=== PATIENT | female | born 1940 | race Caucasian/White ===

== ENCOUNTER 2017-05-04 17:33 | Emergency (ER) | payer MEDICARE, BC ==
[2017-05-04] MEDS ORDERED: ACETAMINOPHEN 325 MG TAB PO ONE (17:57)
--- NOTE | 2017-05-04 18:05 | Emergency Department Record ---
History of Present Illness - General Chief complaint: Head Injury Stated complaint: FALL INJURY/HEAD Time Seen by Provider: 05/04/17 17:51 Source: Patient Mode of Arrival: Ambulatory Limitations: No limitations Travel/Exposure to [facility] Within 21 Days of Symptoms: No - History of Present Illness Initial comments: The patient is here due to a fall 30 minutes ago and injuring her head and L arm. She tripped at the gas station and fell hitting the area above her L eye on an object. There was no LOC and since she denies any visual changes, nausea, vomiting, CALDWELL, or any neck pain. She is having L elbow and wrist pain and is ambulating normally. The patient does take Plavix for a cardiac condition. MD Complaint: Head injury Onset/Timin -: Minutes(s) Mechanism of Injury: Mechanical fall Location: Face Loss of Consciousness: No Previous Trauma to this Area: No Place: Other Radiation: None Severity scale (1-10): 7 - Related Data Home Medications Medication Instructions Recorded Confirmed Last Taken Clopidogrel Bisulfate [Plavix] 75 mg PO DAILY 05/04/17 05/04/17 Unknown Isosorbide Mononitrate [Imdur] 20 mg PO DAILY 05/04/17 05/04/17 Unknown Previous Rx's Medication Instructions Recorded Hydrocodone/Acetaminophen [[place] 1 each PO QID #20 tablet 05/04/17 5-325 Tablet] Allergies/Adverse reactions: Allergies Allergy/AdvReac Type Severity Reaction Status Date / Time codeine Allergy Mild RASH Verified 05/04/17 17:50 Travel Screening - Travel/Exposure Within Last 30 Days Have you traveled within the last 30 days?: No - Travel/Exposure Within Last Year Have you traveled outside the [place] in the last year?: No Review of Systems Constitutional: Denies: Chills, Fever Eyes: Denies: Eye discharge ENT: Denies: Congestion Respiratory: Denies: Cough, Dyspnea Past Medical History - SOCIAL HISTORY Smoking Status: Former smoker Alcohol Use: Occasional Drug Use: None - RESPIRATORY Hx Respiratory Disorders: No - CARDIOVASCULAR Hx Abnormal EKG: Yes Hx Heart Attack: Yes Hx Hypertension: Yes - NEURO Hx Neuro Disorders: Yes Hx Headaches: Yes - GI Hx GI Disorders: Yes Hx Reflux: Yes - Hx Genitourinary Disorders: No - ENDOCRINE Hx Diabetes: No Hx Thyroid Disease: Yes - MUSCULOSKELETAL Hx Arthritis: Yes - PSYCH Hx Anxiety: Yes - HEMATOLOGY/ONCOLOGY Hx Hematology/Oncology Disorders: No Family Medical History Any Significant Family History?: No Physical Exam - General General Appearance: Alert, Oriented x3, Cooperative, No acute distress - Head Head exam: Normocephalic. negative: Atraumatic, Normal inspection Head exam detail: Contusion (There is a contusion above the L eyebrow with mild tenderness.), Hematoma. negative: Holt's sign Image of Face/Head: 1 - Area of hematoma. - Eye Eye exam: Normal appearance, PERRL, EOMI - ENT ENT exam: TM's normal bilaterally Throat exam: Normal inspection. negative: Tonsillar erythema, Tonsillar exudate - Neck Neck exam: Normal inspection, Full ROM. negative: Lymphadenopathy, Meningismus , Tenderness - Respiratory Respiratory exam: Normal lung sounds bilaterally. negative: Respiratory distress - Cardiovascular Cardiovascular Exam: Regular rate, Normal rhythm, Normal heart sounds - Extremities Extremities exam: Normal inspection, Full ROM, Normal capillary refill, Tenderness (There is diffuse L elbow and dorsal L wrist tenderness.) Image of Full Body: 1 - Area of pain and tenderness. - Back Back exam: Reports: Normal inspection, Full ROM. Denies: Muscle spasm, Rash noted, Tenderness - Neurological Neurological exam: Alert, Normal gait, Oriented X3. negative: Abnormal gait, Altered, Motor sensory deficit - Skin Skin exam: negative: Rash Course Vital Signs 05/04/17 17:41 Temperature 97.8 F Pulse Rate 79 Respiratory 16 Rate Blood Pressure 174/78 Pulse Ox 96 - Reevaluation(s) Reevaluation #1: The patient is doing very well at this time. She denies any worsening CALDWELL but does have L elbow pain. I did discuss the xrays with her and that it appears she has an L elbow radial neck fx. We will refer the patient to Dr. Blair for further eval. 05/04/17 18:51 05/04/17 19:12 Medical Decision Making - Data Complexity MDM Data: X-Ray Ordered and/or Reviewed - Radiology Data Radiology results: Report reviewed (Head CT: Neg L Wrist: Neg L Elbow: No obvious fx but fluid in joint.) Disposition Disposition: Discharge Clinical Impression: Head injury Qualifiers: Encounter type: initial encounter Qualified Code(s): S09.90XA - Unspecified injury of head, initial encounter Elbow fracture, left Qualifiers: Encounter type: initial encounter Fracture type: closed Qualified Code(s): S42.402A - Unspecified fracture of lower end of left humerus, initial encounter for closed fracture Disposition: Home, Self-Care Condition: (2) Stable Instructions: Elbow Fracture (ED), Head Injury (ED) Additional Instructions: Please use ice tonight and take the [place] if needed. Please do not take your Plavix for 3 days. Follow up with Dr. Blair tomorrow or next week either in the office or the Specialty clinic. Return to the ER for any worsening headache, nausea, vomiting, balance issues or visual changes. Prescriptions: Hydrocodone/Acetaminophen [[place] 5-325 Tablet] 1 each PO QID #20 tablet Referrals: [facility] Specialty Clinics [Provider Group] SHAI BLAIR [DOCTOR OF OSTEOPATH] - Forms: Patient Portal Access Time of Disposition: 19:15 Quality - Quality Measures Quality Measures: N/A - Blood Pressure Screening View Details: Yes Does Patient Have Any of the Following: Active Dx of HTN Blood Pressure Classification: Hypertensive Reading Systolic Measurement: 174 Diastolic Measurement: 78 Screening for High Blood Pressure: Patient Exclusion, Hx of HTN [G9744]
[2017-05-04] MEDS ORDERED: Diph,Pert(Acell),Tet Vac 0.5 ML SYR IM ONE (18:07)
[2017-05-04] MEDS ORDERED: HYDROCODONE/APAP 5/325MG TABLET PO ONE (18:53)
--- NOTE | 2017-05-06 18:40 | CT SCAN REPORT ---
EXAM: CT SCAN HEAD WO CONTRAST HISTORY: FALL. TECHNIQUE: CT brain without contrast. COMPARISON: None. FINDINGS: The globes are intact. Mucosal thickening of the maxillary sinuses. No displaced or depressed skull fracture. There is a left frontal scalp hematoma. Negative for acute intracranial hemorrhage. CT limited for evaluation of acute infarct. No CT evidence for large or territorial acute infarct. Diffuse atrophy with small vessel ischemic change. No mass or midline shift. IMPRESSION: 1. ATROPHY. SMALL VESSEL ISCHEMIC CHANGE. 2. LEFT FRONTAL SCALP HEMATOMA. [facility] [id number] [facility]
--- NOTE | 2017-05-06 18:44 | RADIOLOGY REPORT ---
EXAM: ELBOW, LEFT 3 VIEWS HISTORY: FALL. TECHNIQUE: Three views of the left elbow. COMPARISON: Prior left elbow from 09/30/12. ENCOUNTER: Initial. FINDINGS: There is abnormal elevation of the anterior fat pad on the lateral view with a visible posterior fat pad consistent with hemarthrosis. There is a subtle area of cortical irregularity, which may represent nondisplaced fracture involving the radial neck. No other evidence for acute fracture or dislocation. IMPRESSION: ABNORMAL FAT PADS CONSISTENT WITH HEMARTHROSIS. PROBABLE SUBTLE NONDISPLACED RADIAL NECK FRACTURE. [facility]: [id number] [facility]
--- NOTE | 2017-05-06 18:47 | RADIOLOGY REPORT ---
EXAM: WRIST, LEFT 3 VIEWS HISTORY: FALL. TECHNIQUE: Four views of the left wrist. COMPARISON: Prior left wrist from 09/30/12. ENCOUNTER: Initial. FINDINGS: Osteopenia. Vascular calcifications. Mild degenerative changes of the hand and wrist. Dorsal soft tissue swelling, however, no radiographic evidence for an acute fracture or dislocation. IMPRESSION: NO ACUTE OSSEOUS ABNORMALITY. SOFT TISSUE SWELLING. OSTEOPENIA. DEGENERATIVE CHANGE. JOB NUMBER: [id number] [facility]
== END 2017-05-04 19:28 | disposition home or self-care (01) ==
LOC: ER 17:33
DX: S52.132A Displaced fracture of neck of left radius, initial encounter for closed fracture (principal); S00.83XA Contusion of other part of head, initial encounter; M25.532 Pain in left wrist; R51 Headache; I10 Essential (primary) hypertension; I25.2 Old myocardial infarction; Z87.891 Personal history of nicotine dependence; W01.198A Fall on same level from slipping, tripping and stumbling with subsequent striking against other object, initial encounter; Y92.524 Gas station as the place of occurrence of the external cause
CPT/HCPCS: 70450; 90715; 96372; 99283; 99284

== ENCOUNTER 2017-05-06 08:56 | Emergency (ER) | payer MEDICARE, BC ==
--- NOTE | 2017-05-06 09:13 | Emergency Department Record ---
History of Present Illness - General Chief complaint: Extremity Problem Stated complaint: LT HAND INJURY (WAS HERE MONDAY) Time Seen by Provider: 05/06/17 08:59 Source: Patient Mode of Arrival: Ambulatory Limitations: No limitations - History of Present Illness Initial comments: The patient is here due to L hand and R knee pain after falling 2 days ago. She was seen in the ER and diagnosed with a subtle L radial neck elbow fx and did have a splint placed. Since the L hand has swollen up. She denies any new symptoms other than the R knee pain. Her CALDWELL is improving and she has had no nausea or vomiting. MD Complaint: Extremity pain Onset/Timin -: Days(s) - Related Data Previous Rx's Medication Instructions Recorded Hydrocodone/Acetaminophen [[place] 1 each PO QID #20 tablet 05/04/17 5-325 Tablet] Allergies Allergy/AdvReac Type Severity Reaction Status Date / Time codeine Allergy Mild RASH Verified 05/06/17 09:00 Review of Systems Constitutional: Denies: Chills, Fever Past Medical History - SOCIAL HISTORY Smoking Status: Former smoker Drug Use: None - RESPIRATORY Hx Respiratory Disorders: No - CARDIOVASCULAR Hx Abnormal EKG: Yes Hx Heart Attack: Yes Hx Hypertension: Yes - NEURO Hx Neuro Disorders: Yes Hx Headaches: Yes - GI Hx GI Disorders: Yes Hx Reflux: Yes - Hx Genitourinary Disorders: No - ENDOCRINE Hx Diabetes: No Hx Thyroid Disease: Yes - MUSCULOSKELETAL Hx Arthritis: Yes - PSYCH Hx Anxiety: Yes - HEMATOLOGY/ONCOLOGY Hx Hematology/Oncology Disorders: No Physical Exam - General General Appearance: Alert, Oriented x3, Cooperative, No acute distress - Head Head exam: Normocephalic. negative: Atraumatic Head exam detail: Contusion (L periorbital area.) - Eye Eye exam: PERRL, EOMI, Periorbital swelling (and bruising.). negative: Normal appearance - Neck Neck exam: Normal inspection, Full ROM. negative: Tenderness - Respiratory Respiratory exam: Normal lung sounds bilaterally. negative: Respiratory distress - Cardiovascular Cardiovascular Exam: Regular rate, Normal rhythm, Normal heart sounds - Extremities Extremities exam: Full ROM, Joint swelling (Mild to R knee.), Normal capillary refill, Tenderness (There is mild anterior R knee tenderness with a small effusion. The patient does have normal ROM of the knee. There is no ligamentous laxity.). negative: Normal inspection (The L hand is mildly swollen and tender. The R knee is very mildly tender with normal ROM.) - Neurological Neurological exam: Alert, Normal gait, Oriented X3. negative: Abnormal gait, Motor sensory deficit Course - Reevaluation(s) Reevaluation #1: I did explain to the patient that the L hand swelling is most likely due to the placement of the L elbow splint. We will xray the hand and knee and replace the splint. 05/06/17 09:12 Reevaluation #2: The patient is doing well at this time. I did discuss the xray results and the need for icing and elevating the affected extremities and to keep the appointment with Dr. Blair for Monday. I also did discuss the elbow with Dr. Blair and he does NOT want the patient in a splint. 05/06/17 09:52 Medical Decision Making - Data Complexity MDM Data: X-Ray Ordered and/or Reviewed - Radiology Data Radiology results: Report reviewed (L Hand: Neg for fx. R Knee: No acute fx but loose bodies in the joint.) Disposition Disposition: Discharge Clinical Impression: Elbow fracture, left Qualifiers: Encounter type: subsequent encounter Fracture type: closed Fracture healing: with routine healing Qualified Code(s): S42.402D - Unspecified fracture of lower end of left humerus, subsequent encounter for fracture with routine healing Disposition: Home, Self-Care Condition: (2) Stable Instructions: Knee Sprain (ED), Elbow Fracture (ED) Additional Instructions: Please ice and elevate the affected extremities and use your home pain medicines. Please see Dr. Blair on Monday in 2 days as planned. Forms: Patient Portal Access Time of Disposition: 09:55 Quality - Quality Measures Quality Measures: N/A - Blood Pressure Screening View Details: Yes Does Patient Have Any of the Following: Active Dx of HTN Blood Pressure Classification: Hypertensive Reading Systolic Measurement: 143 Diastolic Measurement: 65 Screening for High Blood Pressure: Patient Exclusion, Hx of HTN [G9744]
--- NOTE | 2017-05-07 12:07 | RADIOLOGY REPORT ---
EXAM: HAND, LEFT 3 VIEWS HISTORY: FALL. TECHNIQUE: Three views of the left hand. COMPARISON: Left wrist from 05/04/17. ENCOUNTER: Initial. FINDINGS: Osteopenia. Negative for acute fracture or dislocation. However, there is significant dorsal soft tissue swelling. Mild degenerative changes throughout the hand and wrist. IMPRESSION: OSTEOPENIA WITH DEGENERATIVE CHANGE. DORSAL SOFT TISSUE SWELLING. JOB NUMBER: [id number] [facility]
--- NOTE | 2017-05-07 12:09 | RADIOLOGY REPORT ---
EXAM: KNEE, RIGHT 3 VIEWS HISTORY: FALL. TECHNIQUE: Three views of the right knee. COMPARISON: None. ENCOUNTER: Initial. FINDINGS: Osteopenia. Negative for acute fracture or dislocation. Suspected small loose bodies in both the medial and lateral compartments of the knee with moderate tricompartmental degenerative change. Vascular calcifications are also noted. IMPRESSION: OSTEOPENIA WITH DEGENERATIVE CHANGES AND SUSPECTED LOOSE BODIES. JOB NUMBER: [id number] [facility]
== END 2017-05-06 10:10 | disposition home or self-care (01) ==
LOC: ER 08:56
DX: S52.132A Displaced fracture of neck of left radius, initial encounter for closed fracture (principal); M25.562 Pain in left knee; M79.642 Pain in left hand; I10 Essential (primary) hypertension; I25.2 Old myocardial infarction; W19.XXXA Unspecified fall, initial encounter; Z87.891 Personal history of nicotine dependence
CPT/HCPCS: 99283; 99284

== ENCOUNTER 2017-06-26 09:05 | Day surgery (SDC) | payer MEDICARE, BC ==
[2017-06-26] MEDS ORDERED: PROPOFOL 10 MG/ML VIAL IV ONE (09:06)
[2017-06-26] MEDS ORDERED: LIDOCAINE 2% MDV (20MG/ML) 20ML VIAL IV ONE (09:06)
--- NOTE | 2017-06-27 13:50 | Operative Note ---
DATE OF SURGERY: 06/26/2017 OPERATION: COLONOSCOPY to the cecum. INDICATION: History of adenomatous polyps in the past. Her last examination was 5 years ago and was free from any polyps. PROCEDURE: Following informed consent from this alert individual including a discussion of the risks and benefits of the procedure and an opportunity for the patient to ask questions, the patient was in the left lateral decubitus position. A digital rectal examination was performed. No abnormalities were noted. Following this, the Olympus [id number] video colonoscope was inserted into the rectum without resistance. The rectal mucosa had a normal appearance with normal folds and distensibility. The colonoscope was advanced up through the colon to the level of the cecum without much difficulty. Throughout the bowel the mucosa appeared normal, the folds were normal, and the bowel was fairly well distensible. The cecum was defined by noting the appendiceal orifice and ileocecal valve. From the base of the cecum, the colonoscope was then withdrawn back through the bowel, reexamining the mucosa upon withdrawal. Again the right colon, transverse colon were endoscopically normal. Descending colon and sigmoid colon likewise were free from changes. Retroflexion was accomplished in the cecum and failed to demonstrate changes. The colon preparation was good. The colonoscope was then further withdrawn. Retroflexion in the rectum revealed small internal hemorrhoids. The endoscope was straightened and removed. The patient tolerated the procedure well and was returned to the recovery area in stable condition. IMPRESSION: Unremarkable colonoscopy to the cecum with the exception of small hemorrhoids internally. RECOMMENDATIONS: The patient was advised to have surveillance colonoscopy in 5 years' time for history of adenomatous polyps. She will otherwise follow up with Jaymie Ortega MD. As always, thank you for allowing me to participate in the care of your patient. CC: MD TOD Mar
--- NOTE | 2017-06-27 13:50 | Operative Note ---
DATE OF SURGERY: 06/26/2017 OPERATION: ESOPHAGOGASTRODUODENOSCOPY. 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 She returns at this time for a recheck. Unfortunately, she did not stop her Plavix prior to this examination and this was discussed with her before proceeding. ANESTHESIA: Intravenous sedation was administered by the department of anesthesiology and included Diprivan titrated to effect. PROCEDURE: Following informed consent from this alert individual, including a discussion of the risks and benefits of the procedure and an opportunity for the patient to ask questions, the patient was in the left lateral decubitus position. The Olympus [id number] video endoscope was inserted into the esophagus without resistance. The proximal esophagus had a normal appearance with normal folds and distensibility. The mid esophagus likewise was free from changes. The distal esophageal segment demonstrated superficial ulceration noted with some erythema and edema at the GE junction. As mentioned, since the patient was on Plavix, biopsies were not obtained. The stomach was entered. There was diffuse gastritis in the proximal stomach noted without ulcerations or erosions seen. The antrum likewise was endoscopically inflamed with mild linear streak erythema noted extending from the pylorus. The pylorus itself was symmetrical and patent. The duodenal bulb, sweep, and descending duodenum were examined in a serial fashion and found to be normal. The endoscope was then withdrawn back into the body of the stomach. Retroflexion accomplished following air insufflation failed to demonstrate any additional changes. Again, gastritis was noted. The endoscope was then withdrawn back to the esophagus and removed from the patient. The patient tolerated the procedure well and was returned to the recovery area in stable condition. IMPRESSION: 1. Superficial ulcerative distal esophagitis. 2. Gastritis as noted above. RECOMMENDATION: I will discuss treatment with the patient prior to her discharge today and will most likely recheck endoscopy in 2-3 months while patient is off Plavix so that surveillance biopsies can be obtained for a history of [place]'s and intestinal metaplasia noted in the stomach as well and to assess healing. As always, thank you for allowing me to participate in the care of your patient. CC: MD TOD Mar
== END 2017-06-26 12:35 | disposition home or self-care (01) ==
LOC: HOP 09:05
PROVIDERS: ATTEND Internal Medicine Gastroenterology
DX: Z12.11 Encounter for screening for malignant neoplasm of colon (principal); Z86.010 Personal history of colon polyps; K22.70 Barrett's esophagus without dysplasia; K29.70 Gastritis, unspecified, without bleeding; I10 Essential (primary) hypertension; I25.10 Atherosclerotic heart disease of native coronary artery without angina pectoris; E78.00 Pure hypercholesterolemia, unspecified; E03.9 Hypothyroidism, unspecified

== ENCOUNTER 2017-11-06 08:25 | Day surgery (SDC) | payer MEDICARE, BC ==
[2017-11-06] MEDS ORDERED: PROPOFOL 10 MG/ML VIAL IV ONE (08:26)
[2017-11-06] MEDS ORDERED: LIDOCAINE 2% MDV (20MG/ML) 20ML VIAL IV ONE (08:26)
--- NOTE | 2017-11-08 09:50 | Operative Note ---
DATE OF SURGERY: 11/06/2017 OPERATION: ESOPHAGOGASTRODUODENOSCOPY. INDICATION: Previously noted esophageal ulcerations. The patient has been treated for several months. Upper endoscopy is repeated at this time to assess for healing. She also complains of marked amount of phlegm in the back of her throat keeping her from sleeping well at night. We did receive a CT scan report of her sinuses dated 08/09/2017 demonstrating minor mucosal thickening and polyp formation of the maxillary sinuses bilaterally. She states her pyrosis is completely resolved with acid blockage therapy. ANESTHESIA: Intravenous sedation was administered by the department of anesthesiology and included Diprivan titrated to effect. PROCEDURE: Following informed consent from this alert individual, including a discussion of the risks and benefits of the procedure and an opportunity for the patient to ask questions, the patient was in the left lateral decubitus position. The Olympus [id number] video endoscope was inserted into the esophagus without resistance. The proximal esophagus had a normal appearance with normal folds and distensibility. The distal esophagus as well was free from mucosal changes. The squamocolumnar junction was smooth, well defined, and approximated the diaphragmatic hiatus. The previously-noted ulcerations had healed completely. The stomach was entered and found to be unremarkable. The pylorus was patent. The duodenal bulb, sweep and descending duodenum were then examined in a serial fashion and found to be normal as well. The endoscope was then withdrawn back into the body of the stomach. Retroflexion accomplished following air insufflation failed to demonstrate changes. The endoscope was straightened and withdrawn back through a normal esophagus and removed from the patient. She tolerated the procedure well and was returned to the recovery area in stable condition. IMPRESSION: Unremarkable esophagogastroduodenoscopy with healed esophageal ulcerations. RECOMMENDATION: The patient will continue on acid blockade therapy. She might want to revisit the ENT physician regarding her presumed sinus drainage. She might also try a decongestant. Followup will be with Jaymie Ortega MD. As always, thank you for allowing me to participate in the care of your patient. CC: MD Jaymie Patel MD [facility]
== END 2017-11-06 10:09 | disposition home or self-care (01) ==
LOC: HOP 08:25
PROVIDERS: ATTEND Internal Medicine Gastroenterology
DX: Z87.19 Personal history of other diseases of the digestive system (principal); I10 Essential (primary) hypertension; E78.00 Pure hypercholesterolemia, unspecified; F32.9 Major depressive disorder, single episode, unspecified; F41.9 Anxiety disorder, unspecified